=== PATIENT | male | born 1995 | race Caucasian/White ===

== ENCOUNTER 2022-03-12 06:26 | Emergency (ER) | payer BC ==
[2022-03-12 06:50] VITALS: BP 145/81; PULSE 72
[2022-03-12] MEDS ORDERED: Alum Hydrox/Mag Hydrox/Simeth 30 ML, Lidocaine 2% 15 ML PO ONE ×2 (07:23)
[2022-03-12] MEDS ORDERED: Lactated Ringers 1,000 ML IV SCH (07:30)
== END 2022-03-12 10:33 | disposition home or self-care (01) ==
LOC: JD.ED 06:26
DX: R10.11 Right upper quadrant pain (principal); Z88.2 Allergy status to sulfonamides; Z79.899 Other long term (current) drug therapy; Z86.16 Personal history of COVID-19
CPT/HCPCS: 36415; 76705; 80053; 85025; 96360; 96361; 99284; A9270; J7120

== ENCOUNTER 2022-04-05 01:20 | Emergency (ER) | payer BC ==
[2022-04-05 01:41] VITALS: BP 112/67; PULSE 80
[2022-04-05] MEDS ORDERED: Ondansetron 4 MG Tab.DIS PO ONE (02:19)
== END 2022-04-05 02:28 | disposition home or self-care (01) ==
LOC: JD.ED 01:20
DX: F10.129 Alcohol abuse with intoxication, unspecified (principal)
CPT/HCPCS: 99284; A9270; 99282